=== PATIENT | female | born 1960 | race Caucasian/White ===

== ENCOUNTER 2017-01-04 21:40 | Emergency (ER) | payer OTHER, MEDICAID ==
[2017-01-04 21:49] VITALS: BP 157/94; BMI 36.4
[2017-01-04] MEDS ORDERED: TORADOL 60 MG VIAL IM ONE (22:56)
[2017-01-04] MEDS ORDERED: BENADRYL INJ 50 MG VIAL IM STA (22:57)
[2017-01-04] MEDS ORDERED: BACTRIM DS TAB PO ONE ×2 (22:58→23:07)
[2017-01-04] MEDS ORDERED: LEVAQUIN TAB 500 MG PO SCH (23:00)
[2017-01-04] MEDS ORDERED: BENADRYL INJ 50 MG VIAL ONE (23:07)
[2017-01-04] MEDS ORDERED: TORADOL 60 MG VIAL ONE (23:07)
[2017-01-04] MEDS ORDERED: ADACEL TDaP IM ONE (23:08)
--- NOTE | 2017-01-04 23:08 | DR.GENAD ---
HPI - PCP Primary Care Physician: Paula - Complaint/Symptoms Chief Complaint Doctors Comments: Patient complains of worms coming out the sores on her legs for the past two years. she has seen no one recently for the sores on her legs. States she has no local doctor. She denies fever, chills, nausea or vomiting. Patient brought some pieces of skin that she said was worms she picked from her sores. She had multiple pieces of skin about 3-4 mm size; no worms seen. Patient states she has worms on her body now but I cannot see any worms just multiple superifical sores- skin ulcerations on legs, back and arms. No active bleeding noted. She is unsure of her last tetanus. Chief Complaint:: "I have been having worms crawling out of my legs and arms. The worms come out and have even taken form and looked at me." Self Treatment fo Chief Complaint: She has had 2 rounds of parasite treatments. - Nurses notes reviewed Nurses Notes Review: Yes - Source History Provided: Patient - Mode of Arrival Mode of Arrival: Ambulatory - Timing Onset of Chief Complaint: 12/07/14 Came on: Gradually - Duration Duration: Constant How lon Duration: Weeks - Location Location: sores on her legs - Severity Severity: Mild - Modifying Factors Worsens:: nothing Improves:: nothing - Associated Signs and Symptoms Associated Signs and Symptoms: nothing PMH - PMH Past Medical History: Yes Past Medical History: Arthritis, Hypertension Past Surgical History: Yes Surgical History: , [employer] Surgery, Other Past Surgical History Comment: Shoulder, Arm, back surgery, hand, wrist - Family History History of Family Medical Conditions: Yes Family Medical History: Cancer, [place], Heart Failure - Social History Does patient currently use any type of tobacco product: Yes Have you used tobacco products in the last 12 months: Yes Type of Tobacco Use: Cigarettes Does any household member use tobacco: No Alcohol Use: None Do you use any recreational Drugs:: No Lives With: Family Lives Where: Home - infectious screening In the last 2 months have you had wt loss of >10#?: NO Have you had fever, night sweats or hemotysis?: No Have you traveled outside the country in the last 6 months?: No Isolation: Standard ROS - Review of Systems Constitutional: No Symptoms Reported. negative: See HPI, Chills, Diaphoresis, Fever, Malaise, Weakness, Irritable, Fatigue, Loss of Appetite, Other Eyes: No Symptoms Reported ENTM: No Symptoms Reported Respiratoy: No Symptoms Reported. negative: See HPI, Productive Cough, Non- Productive Cough, Moist Cough, Dry Cough, Hacking Cough, Barking Cough, Brassy Cough, Orthopnea, Short of Breath, Stridor, Wheezing, Hemoptysis, Other Cardiovascular: No Symptoms Reported. negative: See HPI, Chest Pain, Edema, Palpitations, Syncope, Cyanosis, Skin Mottling, Other Gastrointestinal/Abdominal: No Symptoms Reported. negative: See HPI, Abdominal Pain, Constipation, Diarrhea, Nausea, Vomiting, Food Intolerance, Other Genitourinary: No Symptoms Reported. negative: See HPI, Discharge, Dysuria, Frequency, Hematuria, Pain, Bleeding, Other Neurological: No Symptoms Reported, Anxiety, Emotional Problems Musculoskeletal: No Symptoms Reported, Leg (superficial ulcerations, abrasions) Integumentary: Lesions, Wound Hematologic/Lymphatic: No Symptoms Reported. negative: See HPI, Anemia, Blood Clots, Easy Bleeding, Easy Bruising, Swollen Glands, Lymphadenopathy, Other Endocrine: No Symptoms Reported Psychiatric: No Symptoms Reported PE - Vital Signs Vitals: Temperature 98.3 F Pulse Rate 94 Respiratory Rate 18 Blood Pressure 157/94 O2 Sat by Pulse Oximetry 97 - General Limitations: No Limitations General Appearance: Alert, In No Apparent Distress - Head Head Exam: Normal Inspection, Atraumatic, Normocephalic - Eyes Eye exam: Normal Appearance, PERRL, EOMI. negative: Scleral Icterus, Conjunctival Injection, Nystagmus, Miosis, Mydrasis, Periorbital Swelling, Periorbital Tenderness, Other - ENT ENT Exam: Normal Exam, Normal Oropharynx, Normal External Ear Exam, Mucous Membranes Moist, TM's Normal Bilaterally External Ear Exam: Normal External Inspection TM/Canal Exam: Bilateral Normal Nose Exam: Normal Nose Exam Mouth Exam: Normal Inspection Throat Exam: Normal Inspection - Neck Neck Exam: Normal Inspection - Chest Chest Inspection: Normal Inspection - Respiratory Respiratory Exam: Normal Lung Sounds Bilat Respiratory Exam: Bilateral Clear to Auscultation - Cardiovascular Cardiovascular Exam: Regular Rate, Normal Rhythm, Normal Heart Sounds - Abdominal Exam Abdominal Exam: Normal Inspection, Normal Bowel Sounds, Soft (superifical abrasion superpubic area) - Extremities Extremities Exam: Full ROM, Normal Capillary Refill (multiple ulcerations on arms, legs, back and abdomen with excoriation). negative: Tenderness - Back Back Exam: Normal Inspection, Full ROM - Neurologic Neurological Exam: Alert, Oriented X3, CN II-XII Intact, Normal Gait, Reflexes Normal - Psychiatric Psychiatric Exam: Normal Affect, Normal Mood, Anxious, Flat Affect - Skin Skin Exam: Warm, Dry, Intact, Normal Color. negative: Rash (multiple ulceration lower legs, arms, back, ) - Diagnosis Discharge Problem: Abrasion, multiple sites, Chronic pruritus, Folliculitis, Scabies, Varicose vein of leg - Discharge Plan Disposition: HOME, SELF-CARE Condition: Stable Prescriptions: Ciprofloxacin HCl [CIPRO 500 MG TAB *] 500 mg PO Q12H #20 tab Hydroxyzine HCl 25 mg Tab [ATARAX *] 25 mg PO Q8H PRN #60 tab PRN Reason: Allergy/Itching Mupirocin Oint [BACTROBAN OINT 2%] 1 applic EXT BID #22 gm Permethrin [Elimite] 5 % EX NEEDED PRN #60 cre PRN Reason: - Follow ups/Referrals Follow ups/Referrals: JEAN PAUL JOLLEY [Primary Care Provider] - 3 days ANTONIO FRAGOSO [STAFF PHYSICIAN] - 3 days - Instructions Instructions: Pruritus, Folliculitis, Scabies, Pediatric, Impetigo, Adult
[2017-01-04] MEDS ORDERED: LEVAQUIN TAB 500 MG ONE (23:19)
== END 2017-01-04 23:40 | disposition home or self-care (01) ==
LOC: ER 21:40
DX: T14.8 Other injury of unspecified body region (principal); L29.8 Other pruritus; L73.9 Follicular disorder, unspecified; B86 Scabies; I83.028 Varicose veins of left lower extremity with ulcer other part of lower leg
CPT/HCPCS: 90471; 96372; 96374; 96375; 99282; J1200; J1885